=== PATIENT | male | born 1995 | race African-American/Black ===

== ENCOUNTER → 2017-09-24 08:44 | Outpatient (CLI) | payer OTHER, SELFPAY ==
--- NOTE | 2017-09-24 | DI.CT.S_ITS ---
PROCEDURE: CT ABDOMEN PELVIS WO/W CON INDICATIONS: UPJ OBSTRUCTION TECHNIQUE: Optional 5 mm thick noncontrast images acquired from the diaphragm to the symphysis pubis. After the administration of intravenous contrast, 5 mm thick images acquired from the diaphragm to the symphysis pubis after a 10-minute delay. 2 mm thick coronal and sagittal reformats were then performed of the kidneys and ureters. For radiation dose reduction, the following was used: automated exposure control, adjustment of mA and/or kV according to patient size. COMPARISON: [place], [place], [place] RENAL FUNCTION W GRACIE, 09/24/2017, 9:29. FINDINGS: Image quality: Diagnostic. Lung bases: Lung bases are clear. Heart size is normal. Urinary system: Both kidneys are normal in size. There is no nephrolithiasis. No ureteral calculi are evident. There is no hydroureter. 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 No perinephric fat stranding. There is normal bilateral renal enhancement. Renal calyces appear normal in morphology when filled with contrast. No cystic or solid renal lesions are evident. Opacified portions of both ureters demonstrate normal caliber. Bladder wall thickness is normal. No calcified bladder stones. Other solid organs: Liver is normal in size and enhancement. Gallbladder is not enlarged or inflamed. Biliary system is non dilated. Pancreas enhances normally. Spleen is normal in size and enhancement. No adrenal nodules. Peritoneum and bowel: Bowel loops demonstrate normal wall thickness and caliber. No free fluid or air. No loculated fluid collections are evident. Nodes and vessels: No retroperitoneal or mesenteric adenopathy by size criteria. Aorta and inferior vena cava are normal in size. Other pelvic soft tissues: No pathologic free pelvic fluid. No inguinal hernias or adenopathy. Bones: No suspicious bony lesions. Mild wedging involving the T12 and T11 vertebral bodies likely is degenerative or chronic. Otherwise, the vertebral body heights are well-maintained. Mild degenerative changes of the lower thoracic spine are present. No acute fractures are identified. There may be early degenerative changes of the bilateral hips. IMPRESSION: Dilated bilateral renal collecting systems (left greater than right) is compatible with bilateral UPJ obstructions. No renal or ureteral calculi are evident. The ureters are normal in course and caliber. Dictated by: Rosalio Zapata M.D. on 09/24/2017 at 12:29 Approved by: Rosalio Zapata M.D. on 09/24/2017 at 12:33
--- NOTE | 2017-09-24 | DI.NM.S_ITS ---
PROCEDURE: [place] RENAL FUNCTION W LASIX RADIOPHARMACEUTICAL: 10.3 mCi Tc-99m MAG3 IV and 40 mg furosemide IV. INDICATIONS: UPJ OBSTRUCTION TECHNIQUE: The patient was hydrated orally before the examination was begun. After intravenous administration of Tc-99m MAG3, posterior abdominal radionuclide angiogram and sequential (1 minute each frame) renal images were obtained. A time-activity curve for each kidney was generated and analyzed. To evaluate for obstruction, the patient was given 40 mg furosemide via slow intravenous injection after the start of the examination. Sequential images were obtained for up to an additional 20 minutes. COMPARISON: None. FINDINGS: Perfusion: There is normal vascular flow to both kidneys. Morphology: Both kidneys are normal in size and shape. No dilated bilateral renal pelvises are noted. The ureters and bladder fill with tracer, and appear normal. Function: Both kidneys demonstrate normal cortical tracer uptake, with [id number] activity ranging from 3 to 5 minutes. The right kidney contributes 53 % of total renal function. The left kidney contributes 47 % of total renal function. Lasix stimulation: After diuretic administration, there is prompt clearance of tracer activity from the renal collecting systems in both kidneys. The half-time of emptying of tracer activity from the right pelvicaliceal system is 8 minutes. The half-time of emptying from the left pelvicaliceal system is 13 minutes. Normal emptying half-times are less than 10 minutes; borderline ranges are from 10 to 20 minutes. IMPRESSION: Dilated, nonobstructed bilateral renal pelvises. Dictated by: Patty Andrade MD, PhD on 09/24/2017 at 10:46 Approved by: Patty Andrade MD, PhD on 09/24/2017 at 11:06
== END ==
PROVIDERS: Visit Provider Physician Assistant
DX: N28.82 Megaloureter (principal)
CPT/HCPCS: 74178; 78708; A9562; Q9967

== ENCOUNTER → 2018-07-01 12:03 | Outpatient (CLI) | payer OTHER, SELFPAY ==
--- NOTE | 2018-07-01 | DI.CT.S_ITS ---
PROCEDURE: CT ABDOMEN PELVIS WO/W CON INDICATIONS: OBSTRUCTION OF URETER AT PELVIC JUNCTION TECHNIQUE: Optional 5 mm thick noncontrast images acquired from the diaphragm to the symphysis pubis. After the administration of intravenous contrast, 5 mm thick images acquired from the diaphragm to the symphysis pubis after a 10-minute delay. 2 mm thick coronal and sagittal reformats were then performed of the kidneys and ureters. For radiation dose reduction, the following was used: automated exposure control, adjustment of mA and/or kV according to patient size. COMPARISON: [facility], CT, CT ABDOMEN PELVIS WO/W CON, 09/24/2017, 10:30. FINDINGS: Image quality: Excellent. Lung bases: Lung bases are clear. Heart size is normal. Urinary system: Both kidneys are stable in size, with no change in asymmetric hydronephrosis on the left and no nephrolithiasis on pre-contrast images. The morphology of the collecting system on the right is that of an extrarenal pelvis. The morphology of the collecting system on the left is that of ureteropelvic junction stenosis with persistent left-sided moderate hydronephrosis and prominence of the extrarenal pelvic structures, with abrupt transition to a normal caliber of the superior third of the left ureter at the ureteral pelvic junction. No perinephric fat stranding. There is normal bilateral renal enhancement. Renal calyces appear stable in morphology when filled with contrast. Opacified portions of both ureters demonstrate normal caliber. Bladder wall thickness is normal. No calcified bladder stones. Other solid organs: Liver is normal in size and enhancement. Gallbladder appears normal. Biliary system is non dilated. Pancreas enhances normally. Spleen is normal in size and enhancement. No adrenal nodules. Peritoneum and bowel: Bowel loops demonstrate normal wall thickness and caliber. No free fluid or air. Nodes and vessels: No retroperitoneal or mesenteric adenopathy by size criteria. Aorta and inferior vena cava are normal in size. Abdominal wall: No ventral hernias. Pelvis: No pathologic free pelvic fluid. No inguinal hernias or adenopathy. Bones: No suspicious bony lesions. No vertebral body compression fractures. IMPRESSION: The renal cortical enhancement is symmetric and normal, the renal cortical thickness has not changed from the initial available CT scanning from 09/24/17, also normal bilaterally. There is asymmetry in the appearance of the collecting systems of the kidneys, with what appears to be an extrarenal pelvis on the right and ureteropelvic junction stenosis on the left. Moderate hydronephrosis is associated with the left-sided finding, as was previously the case, without improvement or worsening from the prior study. The ureters bilaterally are normal in caliber, no urinary tract stones found. The bladder appears normal. No additional abnormality is seen elsewhere. Dictated by: Hunter Levy M.D. on 07/01/2018 at 16:06 Approved by: Hunter Levy M.D. on 07/01/2018 at 16:10
--- NOTE | 2018-07-01 | DI.NM.S_ITS ---
PROCEDURE: [place] RENAL FUNCTION W LASIX RADIOPHARMACEUTICAL: 10.5 mCi Tc-99m MAG3 IV and 40 mg furosemide IV. INDICATIONS: OBSTRUCTION OF URETER AT PELVIC JUNCTION TECHNIQUE: The patient was hydrated orally before the examination was begun. After intravenous administration of Tc-99m MAG3, posterior abdominal radionuclide angiogram and sequential (1 minute each frame) renal images were obtained. A time-activity curve for each kidney was generated and analyzed. To evaluate for obstruction, the patient was given 40 mg furosemide via slow intravenous injection after the start of the examination. Sequential images were obtained for up to an additional 20 minutes. COMPARISON: [facility], CT, CT ABDOMEN PELVIS WO/W CON, 09/24/2017, 10:30. [facility], CT, CT ABDOMEN PELVIS WO/W CON, 07/01/2018, 13:22. [place], [place], [place] RENAL FUNCTION W LASIX, 09/24/2017, 9:29. FINDINGS: Perfusion: There is normal vascular flow to both kidneys. Morphology: Both kidneys are normal in size and shape. The left renal pelvis is dilated. The ureters and bladder fill with tracer, and appear normal. Function: Both kidneys demonstrate normal cortical tracer uptake and excretion. The right kidney contributes 52.4 % of total renal function. The left kidney contributes to 47.6 % of total renal function. Lasix stimulation: After diuretic administration, there is prompt clearance of tracer activity from the renal collecting systems typed the right kidney. The half-time of emptying of tracer activity from the right pelvicaliceal system is 9.3 minutes. There is borderline delayed tracer emptying from the left renal collecting system, likely secondary to dilated left renal pelvis. The half-time of emptying from the left pelvicaliceal system is 13.7 minutes. Normal emptying half-times are less than 10 minutes; borderline ranges are from 10 to 20 minutes. IMPRESSION: 1. Dilated left renal collecting system with borderline T1/2 probably secondary to markedly dilated left renal pelvis. 2. Normal right renal function. 3. Right kidney contributes 52.4% of total renal function; left kidney contributes 47.6% of total renal function. Dictated by: Linda Ibrahim M.D. on 07/01/2018 at 15:32 Approved by: Linda Ibrahim M.D. on 07/01/2018 at 15:54
== END ==
PROVIDERS: Visit Provider Student in an Organized Health Care Education/Training Program
DX: N13.1 Hydronephrosis with ureteral stricture, not elsewhere classified (principal)
CPT/HCPCS: 74178; 78708; A9562; Q9967

== ENCOUNTER → 2018-10-21 09:06 | Outpatient (CLI) | payer OTHER, SELFPAY ==
--- NOTE | 2018-10-21 | DI.NM.S_ITS ---
PROCEDURE: [place] RENAL FUNCTION W LASIX RADIOPHARMACEUTICAL: 9.3 mCi Tc-99m MAG3 IV and 40 mg furosemide IV. INDICATIONS: OBSTRUCTION OF URETER AND PELVIC JUNCTURE TECHNIQUE: The patient was hydrated orally before the examination was begun. After intravenous administration of Tc-99m MAG3, posterior abdominal radionuclide angiogram and sequential (1 minute each frame) renal images were obtained. A time-activity curve for each kidney was generated and analyzed. To evaluate for obstruction, the patient was given 40 mg furosemide via slow intravenous injection after the start of the examination. Sequential images were obtained for up to an additional 20 minutes. COMPARISON: [place], [place] RENAL FUNCTION W LASIX, 09/24/2017, 9:29. [facility], CT, CT ABDOMEN PELVIS WO/W CON, 07/01/2018, 13:22. [place], [place] RENAL FUNCTION W LASIX, 07/01/2018, 12:25. FINDINGS: Perfusion: There is normal vascular flow to both kidneys. Morphology: Both kidneys are normal in size and shape. No dilated collecting system in the right kidney. The left renal collecting system is dilated. The right ureter is normal in caliber. The left ureter is not well seen. The bladder fill with tracer, and appear normal. Function: Both kidneys demonstrate normal cortical tracer uptake, with [id number] activity ranging from 3 to 5 minutes. The right kidney contributes 52% of total renal function. The left kidney contributes 48% of total renal function. Lasix stimulation: After diuretic administration, there is prompt clearance of tracer activity from the renal collecting systems in both kidneys. The half-time of emptying of tracer activity from the right pelvicaliceal system is 8.2 minutes. The half-time of emptying from the left pelvicaliceal system is 8.4 minutes. Normal emptying half-times are less than 10 minutes; borderline ranges are from 10 to 20 minutes. IMPRESSION: 1. Dilated left renal collecting system. The left renal pelvis empties normally after diuretic stimulation with T1/2 at 8.4 minutes, arguing against left renal obstruction. 2. Normal right kidney. 3. Right kidney contributes 52% of total renal function; left kidney contributes 48% of total renal function. 4. There is no significant change from the last exam. Dictated by: Linda Ibrahim M.D. on 10/21/2018 at 11:20 Approved by: Linda Ibrahim M.D. on 10/21/2018 at 11:36
== END ==
PROVIDERS: PCP Student in an Organized Health Care Education/Training Program; Visit Provider Student in an Organized Health Care Education/Training Program
DX: N13.5 Crossing vessel and stricture of ureter without hydronephrosis (principal)
CPT/HCPCS: 78708; A9562